=== PATIENT | male | born 1950 | race Caucasian/White ===

== ENCOUNTER 2017-09-29 16:00 | Emergency (ER) | payer MEDICARE ==
[2017-09-29 17:11] LABS: INFLUENZA A PATIENT NEGATIVE (NEGATIVE); INFLUENZA B PATIENT NEGATIVE (NEGATIVE); OBC FLU VALID
== END 2017-09-29 17:40 | disposition home or self-care (01) ==
LOC: ER 16:00
DX: R50.9 Fever, unspecified (principal); M79.1 Myalgia; R05 Cough; G25.81 Restless legs syndrome; I10 Essential (primary) hypertension; G47.30 Sleep apnea, unspecified
CPT/HCPCS: 87804; 87804-59; 99284